=== PATIENT | male | born 1995 | race Caucasian/White ===

== ENCOUNTER 2016-11-28 18:48 | Emergency (ER) | payer OTHER ==
[~2016-11-28] VITALS: Ht 172.7 cm; Wt 112.0 kg
[2016-11-28 19:00] VITALS: BP 130/72; PULSE 86; RESP 19; TEMP 98.7; O2SAT 97
--- NOTE | 2016-11-28 19:30 | RADRPT ---
EXAM DATE/TIME: 11/28/2016 19:15 [place] COMPARISON: No previous studies available for comparison. INDICATIONS : Lightheaded and dizzy with hyperventilation. MEDICAL HISTORY : None. SURGICAL HISTORY : None. ENCOUNTER: Initial ACUITY: 1 day PAIN SCORE: 0/10 LOCATION: Bilateral chest FINDINGS: A single view of the chest demonstrates the lungs to be symmetrically aerated without evidence of mas s, infiltrate or effusion. The cardiomediastinal contours are unremarkable. Osseous structures are intact. CONCLUSION: Normal examination. Tung Spaulding MD on November 28, 2016 at 19:27 Board Certified Radiologist. This report was verified electronically.
[2016-11-28 19:33] VITALS: BP 130/72; PULSE 86; RESP 16; TEMP 98.4; O2SAT 97
[2016-11-28 19:38] VITALS: O2SAT 97
--- NOTE | 2016-11-28 19:51 | PD ---
HPI Chief Complaint: Anxiety Time Seen by Provider: 18:57 Travel History International Travel<30 days: No Contact w/Intl Traveler<30days: No Traveled to known affect area: No History of Present Illness HPI Patient is a 21-year-old male who presents to emergency room with complaints of an anxiety reaction. Patient reports that he is working full-time and going to school, reports that he spends the whole night doing homework and barely sleeps. 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 Reports that all of a sudden, he began to have abdominal pain, reports that he felt nauseous, reports that he felt tingling to his arms and his legs and all over his body. This arrived on scene, patient was hyperventilating. EMS was able to calm patient down and stop his hyperventilation. Patient at this time with no complaints. Patient denies chest pain/sob. Reports that he is feeling much better at this time. Denies use of drugs/alcohol. PFSH Past Medical History Medical History: Denies Significant Hx Tetanus Vaccination: Unknown Influenza Vaccination: No Past Surgical History Ear Surgery: Yes Social History Alcohol Use: No Tobacco Use: No Substance Use: No Allergies-Medications (Allergen,Severity, Reaction): Coded Allergies: No Known Allergies (Unverified , 11/28/16) Review of Systems General / Constitutional: No: Fever Eyes: No: Visual changes HENT: No: Headaches Cardiovascular: No: Chest Pain or Discomfort Respiratory: No: Shortness of Breath Gastrointestinal: No: Abdominal Pain Genitourinary: No: Dysuria Musculoskeletal: No: Pain Skin: No Rash Neurologic: Positive: Paresthesia, No: Weakness Psychiatric: Positive: Anxiety, No: Depression Endocrine: No: Polydipsia Hematologic/Lymphatic: No: Easy Bruising Physical Exam Narrative GENERAL: nad, nontoxic SKIN: Focused skin assessment warm/dry. HEAD: Atraumatic. Normocephalic. EYES: Pupils equal and round. No scleral icterus. No injection or drainage. ENT: No nasal bleeding or discharge. Mucous membranes pink and moist. NECK: Trachea midline. No JVD. CARDIOVASCULAR: Regular rate and rhythm. No murmur appreciated. RESPIRATORY: No accessory muscle use. Clear to auscultation. Breath sounds equal bilaterally. GASTROINTESTINAL: Abdomen soft, non-tender, nondistended. Hepatic and splenic margins not palpable. MUSCULOSKELETAL: No obvious deformities. No clubbing. No cyanosis. No edema. NEUROLOGICAL: Awake and alert. No obvious cranial nerve deficits. Motor grossly within normal limits. Normal speech. PSYCHIATRIC: anxious on exam Data Data Last Documented VS Vital Signs Date Time Temp Pulse Resp B/P Pulse Ox O2 Delivery O2 Flow Rate FiO2 11/28/16 19:38 97 Room Air 11/28/16 19:33 98.4 86 16 130/72 Orders Electrocardiogram (11/28/16 19:07) Complete Blood Count With Diff (11/28/16 19:07) Comprehensive Metabolic Panel (11/28/16 19:07) Magnesium (Mg) (11/28/16 19:07) Chest, Single Ap (11/28/16 19:07) Iv Access Insert/Monitor (11/28/16 19:07) Oximetry (11/28/16 19:07) Drug Screen, Random Urine (11/28/16 19:07) Sodium Chlor 0.9% 1000 Ml Inj (Ns 1000 M (11/28/16 21:00) Labs Laboratory Tests Test 11/28/16 19:43 White Blood Count 9.2 TH/MM3 Red Blood Count 4.90 MIL/MM3 Hemoglobin 14.8 GM/DL Hematocrit 43.6 % Mean Corpuscular Volume 89.0 FL Mean Corpuscular Hemoglobin 30.3 PG Mean Corpuscular Hemoglobin 34.1 % Concent Red Cell Distribution Width 13.4 % Platelet Count 257 TH/MM3 Mean Platelet Volume 8.8 FL Neutrophils (%) (Auto) 75.4 % Lymphocytes (%) (Auto) 14.8 % Monocytes (%) (Auto) 8.6 % Eosinophils (%) (Auto) 0.8 % Basophils (%) (Auto) 0.4 % Neutrophils # (Auto) 6.9 TH/MM3 Lymphocytes # (Auto) 1.4 TH/MM3 Monocytes # (Auto) 0.8 TH/MM3 Eosinophils # (Auto) 0.1 TH/MM3 Basophils # (Auto) 0.0 TH/MM3 CBC Comment DIFF FINAL Differential Comment Sodium Level 137 MEQ/L Potassium Level 3.5 MEQ/L Chloride Level 104 MEQ/L Carbon Dioxide Level 21.4 MEQ/L Anion Gap 12 MEQ/L Blood Urea Nitrogen 12 MG/DL Creatinine 1.88 MG/DL Estimat Glomerular Filtration 46 ML/MIN Rate Random Glucose 105 MG/DL Calcium Level 10.2 MG/DL Magnesium Level 2.1 MG/DL Total Bilirubin 0.6 MG/DL Aspartate Amino Transf 19 U/L (AST/SGOT) Alanine Aminotransferase 24 U/L (ALT/SGPT) Alkaline Phosphatase 92 U/L Total Protein 8.2 GM/DL Albumin 4.6 GM/DL MDM Medical Decision Making Medical Screen Exam Complete: Yes Emergency Medical Condition: Yes Interpretation(s) EKG at 1929: NSR at 78bpm, qt/qtc: 331/365, no acute st or t wave changes Vital Signs Date Time Temp Pulse Resp B/P Pulse Ox O2 Delivery O2 Flow Rate FiO2 11/28/16 19:38 97 Room Air 11/28/16 19:33 98.4 86 16 130/72 97 Room Air 11/28/16 19:00 98.7 86 19 130/72 97 Differential Diagnosis anxiety reaction, electrolyte abnormality, arrhythmia, dehydration Narrative Course Patient is a 21-year-old male who presents to emergency room with complaints of possible anxiety reaction. Patient arrives emergency room with EMS, EMS reports that patient was hyperventilating on scene, reports that they were able to talk him down and patient has resolution of symptoms at this time. Patient with no complaints at this time and reports that he feels better. Plan to monitor patient, will obtain lab work and evaluate for electrolyte abnormality. Will administer IV fluids. Vital Signs Date Time Temp Pulse Resp B/P Pulse Ox O2 Delivery O2 Flow Rate FiO2 11/28/16 19:38 97 Room Air 11/28/16 19:33 98.4 86 16 130/72 97 Room Air 11/28/16 19:00 98.7 86 19 130/72 97 Laboratory Tests Test 11/28/16 19:43 White Blood Count 9.2 TH/MM3 (4.0-11.0) Red Blood Count 4.90 MIL/MM3 (4.50-5.90) Hemoglobin 14.8 GM/DL (13.0-17.0) Hematocrit 43.6 % (39.0-51.0) Mean Corpuscular Volume 89.0 FL (80.0-100.0) Mean Corpuscular Hemoglobin 30.3 PG (27.0-34.0) Mean Corpuscular Hemoglobin 34.1 % Concent (32.0-36.0) Red Cell Distribution Width 13.4 % (11.6-17.2) Platelet Count 257 TH/MM3 (150-450) Mean Platelet Volume 8.8 FL (7.0-11.0) Neutrophils (%) (Auto) 75.4 % (16.0-70.0) Lymphocytes (%) (Auto) 14.8 % (9.0-44.0) Monocytes (%) (Auto) 8.6 % (0.0-8.0) Eosinophils (%) (Auto) 0.8 % (0.0-4.0) Basophils (%) (Auto) 0.4 % (0.0-2.0) Neutrophils # (Auto) 6.9 TH/MM3 (1.8-7.7) Lymphocytes # (Auto) 1.4 TH/MM3 (1.0-4.8) Monocytes # (Auto) 0.8 TH/MM3 (0-0.9) Eosinophils # (Auto) 0.1 TH/MM3 (0-0.4) Basophils # (Auto) 0.0 TH/MM3 (0-0.2) CBC Comment DIFF FINAL Differential Comment Sodium Level 137 MEQ/L (136-145) Potassium Level 3.5 MEQ/L (3.5-5.1) Chloride Level 104 MEQ/L (98-107) Carbon Dioxide Level 21.4 MEQ/L (21.0-32.0) Anion Gap 12 MEQ/L (5-15) Blood Urea Nitrogen 12 MG/DL (7-18) Creatinine 1.88 MG/DL (0.60-1.30) Estimat Glomerular Filtration 46 ML/MIN (>89) Rate Random Glucose 105 MG/DL (74-106) Calcium Level 10.2 MG/DL (8.5-10.1) Magnesium Level 2.1 MG/DL (1.5-2.5) Total Bilirubin 0.6 MG/DL (0.2-1.0) Aspartate Amino Transf 19 U/L (15-39) (AST/SGOT) Alanine Aminotransferase 24 U/L (9-52) (ALT/SGPT) Alkaline Phosphatase 92 U/L (45-117) Total Protein 8.2 GM/DL (6.4-8.2) Albumin 4.6 GM/DL (3.4-5.0) Last Impressions Chest X-Ray 11/28/16 1605 Signed Impressions: Service Date/Time: Monday, November 28, 2016 19:15 - CONCLUSION: Normal examination. Tung Spaulding MD Patient reevaluated, patient is feeling much better at this time. Plan to send patient home with outpatient instructions to drink plenty of fluids as he does appear to be dehydrated. Signs and symptoms of when to return to the emergency room was reviewed patient in detail. Diagnosis Primary Impression: Dehydration Additional Impression: Anxiety attack Patient Instructions: General Instructions Additional Instructions: Please drink plenty of fluids Return to the emergency room as needed Please make sure you get plenty of rest Disposition: 01 DISCHARGE HOME Condition: Stable Cori Medrano DO Nov 28, 2016 19:51
[2016-11-28 20:17] LABS: AUTOMATED NEUTROPHIL # 6.9 TH/MM3 (1.8-7.7); BASOPHIL % 0.4 % (0.0-2.0); EOSINOPHIL # 0.1 TH/MM3 (0-0.4); EOSINOPHIL % 0.8 % (0.0-4.0); HEMATOCRIT 43.6 % (39.0-51.0); HEMO FLAGS DIFF FINAL; LYMPH % 14.8 % (9.0-44.0); LYMPHOCYTE # 1.4 TH/MM3 (1.0-4.8); MEAN CORPUSCULAR HEMOGLOBIN 30.3 PG (27.0-34.0); MEAN CORPUSCULAR HGB CONC 34.1 % (32.0-36.0); MONO % 8.6 % (0.0-8.0); NEUT % 75.4 % (16.0-70.0); PLATELET COUNT 257 TH/MM3 (150-450); RED CELL DISTRIBUTION WIDTH 13.4 % (11.6-17.2); WHITE BLOOD COUNT 9.2 TH/MM3 (4.0-11.0)
[2016-11-28 20:38] LABS: ANION GAP 12 MEQ/L (5-15); AST (GOT) 19 U/L (15-39); BICARBONATE 21.4 MEQ/L (21.0-32.0); BLOOD UREA NITROGEN 12 MG/DL (7-18); CHLORIDE 104 MEQ/L (98-107); GLOMERULAR FILTRATION RATE 46 ML/MIN (>89); MAGNESIUM 2.1 MG/DL (1.5-2.5); POTASSIUM 3.5 MEQ/L (3.5-5.1); SODIUM (NA) 137 MEQ/L (136-145)
[2016-11-28 20:41] LABS: ALKALINE PHOSPHATASE 92 U/L (45-117); ALT (GPT) 24 U/L (9-52); TOTAL BILIRUBIN ADULT 0.6 MG/DL (0.2-1.0)
[2016-11-28] MEDS ORDERED: SODIUM CHLOR 0.9% 1000 ML INJ 1,000 ML IV ONE (21:00)
[2016-11-28 22:05] VITALS: BP 128/76
--- NOTE | 2016-11-29 19:18 | EKG ---
Date Performed: 11/28/2016 Time Performed: 19:29:36 PTAGE: 21 years EKG: Sinus rhythm WITH SINUS ARRHYTHMIA NORMAL ECG NO PREVIOUS TRACING DOCTOR: Marline Stroud Interpretating Date/Time 11/29/2016 19:16:13
== END 2016-11-28 22:09 | disposition home or self-care (01) ==
LOC: NEPD 18:48
DX: F41.1 Generalized anxiety disorder (principal)
CPT/HCPCS: 71010; 80053; 83735; 85025; 93005; 96360; 99284; J7030